=== PATIENT | female | born 1945 | race Hispanic/Latino ===

== ENCOUNTER 2017-02-09 09:46 | Outpatient (CLI) | payer MEDICARE ==
--- NOTE | 2017-02-09 13:38 | XRay Report ---
CHEST TWO VIEWS: 02/09/17 09:46:00 CLINICAL: Cough.Acute bacterial bronchitis. COMPARISON: None FINDINGS: Normal heart and pulmonary vasculature. The lungs are normally expanded and clear except for a 1 cm calcified granuloma in the right midlung. No airspace disease or pleural effusion. Aortic tortuosity.Mild degenerative changes in the spine. IMPRESSION: Old granulomatous disease.No acute cardiopulmonary process.
== END 2017-02-09 09:47 | disposition home or self-care (01) ==
LOC: SPVIMAG 09:46
PROVIDERS: ATTEND Internal Medicine
DX: J20.8 Acute bronchitis due to other specified organisms (principal)
CPT/HCPCS: 71020